=== PATIENT | male | born 1965 | race Caucasian/White ===

== ENCOUNTER 2018-11-28 12:22 | Emergency (ER) | payer BC ==
[2018-11-28 12:28] VITALS: BP 105/79
[2018-11-28] MEDS ORDERED: Ibuprofen TAB* 600 MG PO ONE (12:35)
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
== END 2018-11-28 13:45 | disposition home or self-care (01) ==
LOC: UCEAST 12:22
DX: S93.402A Sprain of unspecified ligament of left ankle, initial encounter (principal); W10.9XXA Fall (on) (from) unspecified stairs and steps, initial encounter; Y92.9 Unspecified place or not applicable
CPT/HCPCS: 99213; A9270-GY; G0463